=== PATIENT | male | born 1960 | race Caucasian/White ===

== ENCOUNTER 2018-08-14 11:46 | Inpatient (IN) | payer OTHER ==
[2018-08-14] MEDS ORDERED: ERTAPENEM SODIUM INJ 1 GM VIAL IV ONE (12:49)
[2018-08-14 12:51] LABS: HEMATOCRIT 37.9 % (37.9-51.0); MEAN CORPUSCULAR HEMOGLOBIN 35.7 pg (27.0-33.4); MEAN CORPUSCULAR HGB CONC 34.2 g/dL (32.0-36.0); MEAN CORPUSCULAR VOLUME 105 fl (80-97); PLATELET COUNT 222 10^3/uL (150-450); RED BLOOD COUNT 3.63 10^6/uL (4.35-5.55); RED CELL DISTRIBUTION WIDTH 14.2 % (11.5-14.0); WHITE BLOOD COUNT 17.1 10^3/uL (4.0-10.5)
--- NOTE | 2018-08-14 12:55 | ER Document Report ---
ED Extremity Problem, Lower - General Mode of Arrival: Ambulatory Information source: Patient TRAVEL OUTSIDE OF THE [place] IN LAST 30 DAYS: No <EDWARD RIVAS - Last Filed: 08/14/18 13:04> <LEONEL LUCIANO - Last Filed: 08/14/18 16:00> - General Chief Complaint: Foot Pain Stated Complaint: FOOT PROBLEM Time Seen by Provider: 08/14/18 12:35 Notes: 58-year-old male with type I diabetes that presents to the emergency department today with complaints of a right foot infection. Patient states that this infection began around August 09. Patient denies any fevers. (EDWARD RIVAS) - Related Data Allergies/Adverse Reactions: naproxen [From Aleve] Allergy (Verified 08/14/18 11:50) itching Past Medical History - General Information source: Patient - Social History Smoking Status: Current Every Day Smoker Cigarette use (# per day): Yes Chew tobacco use (# tins/day): No Frequency of alcohol use: Occasional Family History: Reviewed & Not Pertinent Patient has suicidal ideation: No Patient has homicidal ideation: No Endocrine Medical History: Reports: Hx Diabetes Mellitus Type 1 <EDWARD RIVAS - Last Filed: 08/14/18 13:04> Review of Systems - Review of Systems Constitutional: No symptoms reported. denies: Fever EENT: No symptoms reported Cardiovascular: No symptoms reported Respiratory: No symptoms reported Gastrointestinal: No symptoms reported Genitourinary: No symptoms reported Male Genitourinary: No symptoms reported Musculoskeletal: No symptoms reported Skin: See HPI, Change in color, Lesions Hematologic/Lymphatic: No symptoms reported Neurological/Psychological: No symptoms reported -: Yes All other systems reviewed and negative <EDWARD RIVAS - Last Filed: 08/14/18 13:04> Physical Exam <EDWARD RIVAS - Last Filed: 08/14/18 13:04> <LEONEL LUCIANO - Last Filed: 08/14/18 16:00> - Vital signs Vitals: Temp Pulse Resp BP Pulse Ox 98.4 F 123 H 18 151/78 H 100 08/14/18 11:52 08/14/18 11:52 08/14/18 11:52 08/14/18 11:52 08/14/18 11:52 - Notes Notes: Physical Exam: General: Alert, appears well. HEENT: Normocephalic. Atraumatic. PERRL. Extraocular movements intact. Oropharynx clear. Neck: Supple. Non-tender. Respiratory: No respiratory distress. Clear and equal breath sounds bilaterally. Cardiovascular: Regular rate and rhythm. Abdominal: Normal Inspection. Non-tender. No distension. Normal Bowel Sounds. Back: Non-tender. No deformity or step off. Extremities: Moves all four extremities. Upper extremities: Normal inspection. Normal ROM. Lower extremities: See skin exam Neurological: Normal cognition. AAOx4. Normal speech. Psychological: Normal affect. Normal Mood. Skin: Erythema, swelling, with white discoloration over the medial and dorsal medial aspect of the right lower extremity. Over the plantar surface of the right first metacarpal head has 1.5cm x 3cm area of red dermis, no epidermis over this area. (EDWARD RIVAS) Course - Laboratory Result Diagrams: 08/14/18 12:37 08/14/18 12:37 <EDWARD RIVAS - Last Filed: 08/14/18 13:04> - Laboratory Result Diagrams: 08/14/18 12:37 08/14/18 12:37 - Diagnostic Test Radiology reviewed: Reports reviewed - Right foot shows soft tissue swelling with gas formation predominantly around the head of the first metatarsal - EKG Interpretation by [place] EKG shows normal: Sinus rhythm, [place], Intervals, ST-T Waves. abnormal: QRS Complexes - Abnormal R progression Rate: Tachycardia - 110 - Consults Dr. Morrison Time consulted: 14:15 Consulted provider: will come to ER Dr. Moe Time consulted: 14:00 Consulted provider: will see as inpatient - Have the hospitalist admit the patient and he will see him in the emergency room. <LEONEL LUCIANO - Last Filed: 08/14/18 16:00> - Vital Signs Vital signs: Temp Pulse Resp BP Pulse Ox 100.9 F H 115 H 20 136/77 H 100 08/14/18 14:46 08/14/18 14:46 08/14/18 14:46 08/14/18 14:46 08/14/18 11:52 - Laboratory Laboratory results interpreted by me: 08/14/18 08/14/18 08/14/18 12:37 12:37 13:50 WBC 17.1 H RBC 3.63 L Hgb 13.0 L MCV 105 H MCH 35.7 H RDW 14.2 H Seg Neuts % (Manual) 86 H Lymphocytes % (Manual) 7 L Abs Neuts (Manual) 14.7 H Sodium 135.8 L Chloride 97 L BUN 6 L Glucose 447 H* Total Bilirubin 3.8 H Direct Bilirubin 3.1 H AST 97 H Alkaline Phosphatase 298 H Albumin 3.4 L Urine Glucose (UA) >=500 H Urine Urobilinogen 4.0 H Urine Ascorbic Acid 20 H Critical Care Note - Critical Care Note Total time excluding time spent on procedures (mins): 35 <LEONEL LUCIANO - Last Filed: 08/14/18 16:00> Discharge <EDWARD RIVAS - Last Filed: 08/14/18 13:04> - Discharge Admitting Provider: Hospitalist Unit Admitted: IMCU <LEONEL LUCIANO - Last Filed: 08/14/18 16:00> - Discharge Clinical Impression: Gas gangrene of foot Diabetic foot ulcer Qualifiers: Diabetic foot ulcer location: unspecified part of foot Diabetes mellitus type: type 2 Laterality: right Non-pressure ulcer stage: with necrosis of muscle Qualified Code(s): E11.621 - Type 2 diabetes mellitus with foot ulcer Hyperglycemia due to type 2 diabetes mellitus Qualifiers: Diabetes mellitus middle or intermediate school principal insulin use: without fpc use Qualified Code(s ): E11.65 - Type 2 diabetes mellitus with hyperglycemia Leukocytosis Qualifiers: Leukocytosis type: unspecified Qualified Code(s): D72.829 - Elevated white blood cell count, unspecified Condition: Stable Disposition: ADMITTED INPATIENT Scribe Attestation: 08/14/18 14:19 I personally performed the services described in the documentation, reviewed and edited the documentation which was dictated to the scribe in my presence, and it accurately records my words and actions. (LEONEL LUCIANO) Scribe Documentation - Scribe Written by Bert:: Bert Hudson, 08/14/2018 1305 acting as scribe for :: Sarai <EDWARD RIVAS - Last Filed: 08/14/18 13:04>
[2018-08-14 13:10] LABS: ALANINE AMINOTRANSFERASE 39 U/L (21-72); ALBUMIN 3.4 g/dL (3.5-5.0); ALKALINE PHOSPHATASE 298 U/L (38-126); ANION GAP 14 (5-19); ASPARTATE AMINO TRANSFERASE 97 U/L (17-59); BILIRUBIN,DIRECT 3.1 mg/dL (0.0-0.4); BILIRUBIN,TOTAL 3.8 mg/dL (0.2-1.3); BLOOD UREA NITROGEN 6 mg/dL (7-20); CALCIUM 8.7 mg/dL (8.4-10.2); CARBON DIOXIDE 25 mmol/L (22-30); CHLORIDE 97 mmol/L (98-107); SODIUM 135.8 mmol/L (137-145); TOTAL PROTEIN 7.2 g/dL (6.3-8.2)
[2018-08-14 13:21] LABS: GLUCOSE 447 mg/dL (75-110)
[2018-08-14 13:26] LABS: ABSOLUTE LYMPHOCYTES# (MANUAL) 1.2 10^3/uL (0.5-4.7); ABSOLUTE NEUTROPHILS# (MANUAL) 14.7 10^3/uL (1.7-8.2); BASOPHILS % (MANUAL) 0 % (0-2); EOSINOPHILS % (MANUAL) 1 % (0-6); LYMPHOCYTES % (MANUAL) 7 % (13-45); MONOCYTES % (MANUAL) 6 % (3-13); SEGMENTED NEUTROPHILS % (MAN) 86 % (42-78); TOTAL CELLS COUNTED 100
[2018-08-14 13:27] LABS: ANISOCYTOSIS SLIGHT; PLATELET COMMENT ADEQUATE; POIKILOCYTOSIS SLIGHT; STOMATOCYTES SLIGHT; TOXIC GRANULATION 1+
--- NOTE | 2018-08-14 13:44 | RADIOLOGY REPORT (SQ) ---
EXAM DESCRIPTION: FOOT RIGHT COMPLETE COMPLETED DATE/TIME: 08/14/2018 1:30 pm REASON FOR STUDY: Diabetic foot ulcers COMPARISON: None. NUMBER OF VIEWS: Three views. TECHNIQUE: AP, lateral and oblique radiographic images acquired of the right foot. LIMITATIONS: None. FINDINGS: MINERALIZATION: Normal. BONES: No acute fracture or dislocation. No worrisome bone lesions. JOINTS: No effusions. SOFT TISSUES: There is subcutaneous gas lucency about the medial and lateral aspects of the right 1st metatarsophalangeal joint, the ball of the right great toe, and about the dorsum of the right foot. OTHER: No other significant finding. IMPRESSION: 1. There is subcutaneous gas lucency about the medial and lateral aspects of the right 1 st metatarsophalangeal joint, the ball of the right great toe, and about the dorsum of the right foot . Findings are highly concerning for gas-forming infection such as necrotizing fascitis, which is im minently threatening to life and limb. 2. No evidence of osseous erosion or sclerosis suggestive of osteomyelitis. MRI may be used to more sensitively evaluate for marrow edema and osteomyelitis when clinically appropriate. TECHNICAL DOCUMENTATION: JOB ID: [id number] [employer]- All Rights Reserved Reading location - IP/workstation name: [email or web address]
[2018-08-14] MEDS ORDERED: NORMAL SALINE 1000 ML 1,000 ML IV ONE (14:08)
[2018-08-14] MEDS ORDERED: INSULIN REG, HUMAN 100 UNIT/ML 3 ML VIAL (PYX) IV ONE (14:12)
[2018-08-14 14:24] LABS: APPEARANCE,URINE CLEAR; BILIRUBIN,URINE NEGATIVE (NEGATIVE); GLUCOSE, URINE >=500 mg/dL (NEGATIVE); KETONES,URINE NEGATIVE (NEGATIVE); LEUKOCYTE ESTERASE,URINE NEGATIVE (NEGATIVE); NITRITE,URINE NEGATIVE (NEGATIVE); PROTEIN,URINE NEGATIVE (NEGATIVE); URINE SPECIFIC GRAVITY 1.022
[2018-08-14 14:33] LABS: COLOR,URINE YELLOW
[2018-08-14] MEDS ORDERED: ACETAMINOPHEN 325 MG TABLET PO ONE (14:46)
[2018-08-14] MEDS ORDERED: DEXTROSE 40% GEL 15 GM TUBE PO PRN ×2 (15:11)
[2018-08-14] MEDS ORDERED: DEXTROSE 50%-WATER 25 GM/50 ML DISP.SYRIN IV PRN ×2 (15:11)
[2018-08-14] MEDS ORDERED: GLUCAGON,HUMAN RECOMB 1 MG INJ IM PRN (15:11)
[2018-08-14] MEDS ORDERED: INSULIN LISPRO 100 UNIT/ML 3 ML VIAL SUBCUT PRN (15:17)
[2018-08-14] MEDS ORDERED: VANCOMYCIN HCL 0 MG in DEXTROSE 5%-WATER 250 ML IV NR (15:45)
[2018-08-14] MEDS ORDERED: MIDAZOLAM 2 MG/2 ML INJ ONE (17:35)
[2018-08-14] MEDS ORDERED: FENTANYL CITRATE INJ/PF 100 MCG/2 ML AMPUL ONE (17:35)
[2018-08-14] MEDS ORDERED: LIDOCAINE 2% INJ-PF (20 MG/ML) 10 ML AMPUL ONE (17:35)
[2018-08-14] MEDS ORDERED: BUPIVACAINE HCL 0.5 % INJ/PF 30 ML SDV ONE (17:36)
[2018-08-14] MEDS ORDERED: PROPOFOL INJ 200 MG/20 ML VIAL IV ONE (17:36)
--- NOTE | 2018-08-14 17:41 | PDOC H&P ---
History of Present Illness Admission Date/PCP: 08/14/18 14:22 SUSAN JONES MD Patient complains of: right foot pain, drainage, foul odor. History of Present Illness: MARILU IVEY is a 58 year old male with a one day h/o swelling, erythema, and pain to the right foot. The pt first noticed the symptoms this morning. He has not had anything like this happen before. He is a diabetic and has neuropathy. He has an eschar to the right plantar and medial surfaces. There is copius, fould smelling purulent drainage. He reports fevers, chills, drainage, and pain. He denies CP, SOB, N/V, melena, hematochezia, hematemesis, blurry vision. His pain is throbbing and severe. He is a smoker. Past Medical History Cardiac Medical History: Reports: Hypertension Endocrine Medical History: Reports: Diabetes Mellitus Type 1 Past Surgical History Past Surgical History: Reports: None Social History Smoking Status: Current Every Day Smoker Frequency of Alcohol Use: None Hx Recreational Drug Use: No Hx Prescription Drug Abuse: No - Advance Directive Resuscitation Status: Full Code Family History Family History: Reviewed & Not Pertinent Parental Family History Reviewed: Yes Children Family History Reviewed: Yes Sibling(s) Family History Reviewed.: Yes Medication/Allergy Home Medications: Lisinopril [Prinivil 10 mg Tablet] 10 mg PO DAILY 08/14/18 Metformin HCl [Glucophage 500 mg Tablet] 500 mg PO DAILY 08/14/18 Pregabalin [Lyrica 100 Mg Capsule] 100 mg PO BID 08/14/18 Allergies/Adverse Reactions: naproxen [From Aleve] Allergy (Verified 08/14/18 11:50) itching Review of Systems Constitutional: PRESENT: chills, fever(s) Eyes: ABSENT: visual disturbances Ears: ABSENT: hearing changes Nose, Mouth, and Throat: ABSENT: sore throat Cardiovascular: ABSENT: chest pain, palpitations Respiratory: ABSENT: cough, dyspnea Gastrointestinal: ABSENT: abdominal pain, hematemesis, hematochezia, nausea, vomiting Genitourinary: ABSENT: difficulty urinating Musculoskeletal: ABSENT: back pain Integumentary: PRESENT: lesions - right foot Neurological: PRESENT: numbness - diabetic neuropathy. ABSENT: confusion, convulsions, dizziness Psychiatric: ABSENT: anxiety, depression Endocrine: ABSENT: cold intolerance, heat intolerance Hematologic/Lymphatic: ABSENT: easy bleeding, easy bruising Physical Exam Vital Signs: Temp Pulse Resp BP Pulse Ox 100.9 F H 115 H 20 136/77 H 100 08/14/18 14:46 08/14/18 14:46 08/14/18 14:46 08/14/18 14:46 08/14/18 11:52 General appearance: PRESENT: no acute distress. ABSENT: obese Head exam: PRESENT: atraumatic, normocephalic Eye exam: PRESENT: EOMI, PERRLA. ABSENT: scleral icterus Mouth exam: ABSENT: neck supple Teeth exam: ABSENT: poor dentation Neck exam: ABSENT: meningismus, tenderness, thyromegaly, tracheal deviation Respiratory exam: PRESENT: clear to auscultation paula, unlabored. ABSENT: chest wall tenderness, tachypnea, wheezes Cardiovascular exam: PRESENT: RRR Pulses: PRESENT: normal radial pulses GI/Abdominal exam: PRESENT: soft. ABSENT: distended, firm, guarding, tenderness Rectal exam: PRESENT: deferred Extremities exam: PRESENT: other - right foot with necrotic ulcer to plantar and medial aspect. Purulent drainage. Erythema present throughout foot, up to ankle. Musculoskeletal exam: ABSENT: deformity Neurological exam: PRESENT: alert, awake, oriented to person, oriented to place , oriented to time, oriented to situation, CN II-XII grossly intact Psychiatric exam: ABSENT: agitated, anxious, depressed Focused psych exam: ABSENT: delusional Skin exam: ABSENT: cyanosis, erythema, jaundice Results Laboratory Results: 08/14/18 08/14/18 14:25 15:45 Lactic Acid 2.5 H 2.0 Impressions: Foot X-Ray 08/14/18 12:48 IMPRESSION: 1. There is subcutaneous gas lucency about the medial and lateral aspects of the right 1st metatarsophalangeal joint, the ball of the right great toe, and about the dorsum of the right foot. Findings are highly concerning for gas-forming infection such as necrotizing fascitis, which is imminently threatening to life and limb. 2. No evidence of osseous erosion or sclerosis suggestive of osteomyelitis. MRI may be used to more sensitively evaluate for marrow edema and osteomyelitis when clinically appropriate. Assessment & Plan - Diagnosis (1) Diabetic foot ulcer Qualifiers: Diabetic foot ulcer location: unspecified part of foot Diabetes mellitus type: type 2 Laterality: right Non-pressure ulcer stage: with necrosis of muscle Qualified Code(s): E11.621 - Type 2 diabetes mellitus with foot ulcer; L97.513 - Non-pressure chronic ulcer of other part of right foot with necrosis of muscle; L97.513 - Non-pressure chronic ulcer of other part of right foot with necrosis of muscle; L97.513 - Non-pressure chronic ulcer of other part of right foot with necrosis of muscle; L97.513 - Non-pressure chronic ulcer of other part of right foot with necrosis of muscle - Plan Summary Plan Summary: 58 y/o M with a severe diabetic foot infection. I have reviewed his X-rays. There is evidence of deep infection. The pt has areas of necrosis and purulent drainage. I have recomended operative debridement and likely amputation of his first and possibley second toes. The pt has agreed to this. Risks/benefits discussed, infomred consent obtained, and all questions answered.
[2018-08-14] MEDS ORDERED: VANCOMYCIN HCL INJ 1000 MG VIAL ONE (17:58)
--- NOTE | 2018-08-14 18:13 | PDOC H&P ---
History of Present Illness Admission Date/PCP: 08/14/18 14:22 SUSAN JONES MD Patient complains of: foot swelling and drainage History of Present Illness: MARILU IVEY is a 58 year old male with a PMH of hypertension, diabetes mellitus and chronic smoking who presented with right foot pain and drainage. Patient reports that he started having some pain, swelling and redness on the distal, medial aspect of the right foot. He says that the swelling continued progress and the erythema spread towards to midaspect of the right foot. He says that he developed a purulent, foul-smelling drainage on the area. He denies previous wounds on the feet although he appears to have small chronic healing superficial wounds on both legs. He denies fever or chills. In the ER, foot x-ray shows changes concerning for possible necrotizing fasciitis. Case was discussed by ER provider with surgicalist who asked to have patient admitted under hospitalist service. Past Medical History Endocrine Medical History: Reports: Diabetes Mellitus Type 1 Social History Smoking Status: Current Every Day Smoker Family History Family History: Reviewed & Not Pertinent Parental Family History Reviewed: Yes - no premature CAD Children Family History Reviewed: No Sibling(s) Family History Reviewed.: No Medication/Allergy Home Medications: Lisinopril [Prinivil 10 mg Tablet] 10 mg PO DAILY 08/14/18 Metformin HCl [Glucophage 500 mg Tablet] 500 mg PO DAILY 08/14/18 Pregabalin [Lyrica 100 Mg Capsule] 100 mg PO BID 08/14/18 Allergies/Adverse Reactions: naproxen [From Aleve] Allergy (Verified 08/14/18 11:50) itching Review of Systems All systems: reviewed and no additional remarkable complaints except as stated - as mentioned in HPI Physical Exam Vital Signs: Temp Pulse Resp BP Pulse Ox 100.9 F H 115 H 20 136/77 H 100 08/14/18 14:46 08/14/18 14:46 08/14/18 14:46 08/14/18 14:46 08/14/18 11:52 General appearance: PRESENT: no acute distress, well-developed, well-nourished Head exam: PRESENT: atraumatic, normocephalic Eye exam: PRESENT: conjunctiva pink, EOMI, PERRLA. ABSENT: scleral icterus Ear exam: PRESENT: normal external ear exam Neck exam: ABSENT: carotid bruit, JVD, lymphadenopathy, thyromegaly Respiratory exam: PRESENT: clear to auscultation paula. ABSENT: rales, rhonchi, wheezes Cardiovascular exam: PRESENT: RRR. ABSENT: diastolic murmur, rubs, systolic murmur GI/Abdominal exam: PRESENT: normal bowel sounds, soft. ABSENT: distended, guarding, mass, organolmegaly, rebound, tenderness Rectal exam: PRESENT: deferred Extremities exam: PRESENT: other - right foot is erythematous and grossly swollen particularly on the mid-distal aspect, there is a draining wound on the distal, medial apsec tof the right foot Neurological exam: PRESENT: alert, awake, oriented to person, oriented to place , oriented to time, oriented to situation, CN II-XII grossly intact. ABSENT: motor sensory deficit Results Laboratory Results: 08/14/18 14:25 Lactic Acid 2.5 H Impressions: Foot X-Ray 08/14/18 12:48 IMPRESSION: 1. There is subcutaneous gas lucency about the medial and lateral aspects of the right 1st metatarsophalangeal joint, the ball of the right great toe, and about the dorsum of the right foot. Findings are highly concerning for gas-forming infection such as necrotizing fascitis, which is imminently threatening to life and limb. 2. No evidence of osseous erosion or sclerosis suggestive of osteomyelitis. MRI may be used to more sensitively evaluate for marrow edema and osteomyelitis when clinically appropriate. Assessment & Plan - Diagnosis (1) Sepsis Is this a current diagnosis for this admission?: Yes Plan: Sepsis from possible necrotizing fasciitis. Patient is presenting with drainage on the right foot. He has tachycardia, fever and significant leukocytosis. He also has hyperbilirirubinemia. Lactic acid is also elevated after being given a liter of IV fluids in the ER. Case was discussed by ER provider with surgicalist who asked to have patient admitted under hospitalist service. Blood culture drawn. Patient was given Ertapenem in the ER. Will continue antibiotics with vancomycin and Zosyn. Continue IV fluids. (2) Gas gangrene of foot Is this a current diagnosis for this admission?: Yes Plan: As per number 1. Patient will be evaluated by surgery soon for surgical intervention. (3) Hyperglycemia due to type 2 diabetes mellitus Qualifiers: Diabetes mellitus correction insulin use: without terminal computer operator use Qualified Code(s): E11.65 - Type 2 diabetes mellitus with hyperglycemia Plan: Diabetes is controlled with A1c of 5.6. His hyperglycemia is likely related to his sepsis. - Time Time Spent: 30 to 50 Minutes
[2018-08-14] MEDS: BUPIVACAINE HCL 0.25% /EPINEPHRINE INJ/PF 30 ML SDV ONE (18:39)
[2018-08-14] MEDS ORDERED: OXYCODONE-ACETAMINOPHEN 5-325 MG TABLET PO PRN ×2 (18:49)
[2018-08-14] MEDS ORDERED: PROMETHAZINE HCL INJ 25 MG/1 ML VIAL IV PRN ×2 (18:49)
[2018-08-14] MEDS ORDERED: FENTANYL CITRATE INJ/PF 100 MCG/2 ML AMPUL IV PRN ×3 (18:49)
[2018-08-14] MEDS ORDERED: DIPHENHYDRAMINE HCL 50 MG/ML VIAL IV PRN (18:49)
[2018-08-14] MEDS ORDERED: ONDANSETRON HCL INJ/PF 4 MG/2 ML SDV IV PRN (18:49)
[2018-08-14] MEDS ORDERED: MEPERIDINE HCL/PF INJ 25 MG/1 ML DISP.SYRIN IV PRN (18:49)
[2018-08-14] MEDS: PIPERACILLIN SODIUM/TAZOBACTAM 3.375 GM in NORMAL SALINE 100 ML IV SCH ×2 (21:01→23:43)
[2018-08-14] MEDS: NORMAL SALINE 1000 ML 1,000 ML IV PRN (21:04)
--- NOTE | 2018-08-14 21:14 | Operative Report ---
Nonrecallable Operative Report DATE OF SURGERY: 08/14/18 PREOPERATIVE DIAGNOSIS: 1. Diabetic foot infection, right. 2. Necrotizing fasciitis of the right foot. POSTOPERATIVE DIAGNOSIS: 1. Diabetic foot infection, right. 2. Necrotizing fasciitis of the right foot. OPERATION: 1. Ray amputation of the right great toe. 2. Sharp, excisional debridement of skin, fat, muscle, and tendon for the right foot for necrotizing fasciitis. Total debrided area measures approximately 5 cm x 4 cm. SURGEON: JAYDA WEAVER ANESTHESIA: LMAC TISSUE REMOVED OR ALTERED: right great toe COMPLICATIONS: none apparent ESTIMATED BLOOD LOSS: 35cc PROCEDURE: Drains/implants: Quarter inch [place] drain through the foot. 4 x 4 packing soaked in Betadine. Procedure in detail: After informed consent was obtained, the patient was brought into the operating room and laid in the supine position. The area of the right foot was prepped and draped in a normal sterile fashion. The patient had a large, necrotic malperforans ulcer. Debridement of nonviable tissue was then undertaken. The soft tissue of the foot was necrotic all the way to the bone on the plantar surface overlying the metatarsal head. This necrotic tissue extended laterally and superiorly somewhat. It was obvious that the great toe would need to be removed in order to excise all of the necrotic tissue. The large area of necrotic soft tissue was excised sharply using a 10 blade scalpel. Dissection was carried to the metatarsal head. The metatarsal head was then divided using large bone cutters. There was a large amount of purulent material surrounding the metatarsal head. The purulent fluid extended more proximally into the foot, on the dorsal and plantar aspects of the foot. Because of this, counterincisions were made on the dorsal and plantar surface of the foot to drain all of the purulent material adequately. Aggressive irrigation was then undertaken. A 1/4 inch [place] drain was passed through the counterincisions. Hemostasis was achieved using Bovie electrocautery. The wound was then packed with Betadine soaked 4 x 4's. A dressing was placed, and the procedure was concluded. All sponge, instrument, and needle counts were correct x2. Condition: Fair.
[2018-08-14] MEDS: HEPARIN SOD (PORCINE) 5,000 UNIT/ML 1 ML SYRINGE SUBCUT SCH (21:54)
[2018-08-14] MEDS: VANCOMYCIN HCL 1,000 MG in DEXTROSE 5%-WATER 250 ML IV SCH (21:54)
[2018-08-14] MEDS ORDERED: HYDROCODONE/ACETAMINOPHEN 10-325 MG TABLET PO PRN (22:39)
[2018-08-14] MEDS ORDERED: MORPHINE SULFATE 10 MG/ML INJ IV PRN (22:39)
[2018-08-15] MEDS: PIPERACILLIN SODIUM/TAZOBACTAM 3.375 GM in NORMAL SALINE 100 ML IV SCH ×3 (05:24→18:40)
[2018-08-15] MEDS: VANCOMYCIN HCL 1,000 MG in DEXTROSE 5%-WATER 250 ML IV SCH ×3 (05:56→22:35)
[2018-08-15 06:05] LABS: ABSOLUTE BASOPHILS # (AUTO) 0.1 10^3/uL (0.0-0.2); ABSOLUTE EOSINOPHILS # (AUTO) 0.1 10^3/uL (0.0-0.6); ABSOLUTE LYMPHOCYTES (AUTO) 1.3 10^3/uL (0.5-4.7); ABSOLUTE MONOCYTES (AUTO) 1.6 10^3/uL (0.1-1.4); BASOPHILS % (AUTO) 0.8 % (0-2); EOSINOPHILS % (AUTO) 0.5 % (0-6); HEMATOCRIT 32.1 % (37.9-51.0); HEMOGLOBIN 11.2 g/dL (13.5-17.0); LYMPHOCYTES % (AUTO) 8.7 % (13-45); MEAN CORPUSCULAR HEMOGLOBIN 35.8 pg (27.0-33.4); MEAN CORPUSCULAR HGB CONC 34.8 g/dL (32.0-36.0); MEAN CORPUSCULAR VOLUME 103 fl (80-97); MONOCYTES % (AUTO) 10.3 % (3-13); PLATELET COUNT 182 10^3/uL (150-450); RED BLOOD COUNT 3.12 10^6/uL (4.35-5.55); RED CELL DISTRIBUTION WIDTH 13.7 % (11.5-14.0); SEGMENTED NEUTROPHILS % (AUTO) 79.7 % (42-78); TOTAL CELLS COUNTED % (AUTO) 100 %
[2018-08-15 06:27] LABS: ANION GAP 9 (5-19); BLOOD UREA NITROGEN 6 mg/dL (7-20); CALCIUM 7.9 mg/dL (8.4-10.2); CARBON DIOXIDE 25 mmol/L (22-30); CHLORIDE 103 mmol/L (98-107); GLUCOSE 163 mg/dL (75-110); POTASSIUM 3.9 mmol/L (3.6-5.0); SODIUM 136.6 mmol/L (137-145)
[2018-08-15 09:23] LABS: ALANINE AMINOTRANSFERASE 42 U/L (21-72); ALBUMIN 2.2 g/dL (3.5-5.0); ALKALINE PHOSPHATASE 246 U/L (38-126); ASPARTATE AMINO TRANSFERASE 72 U/L (17-59); BILIRUBIN,DIRECT 2.6 mg/dL (0.0-0.4); BILIRUBIN,TOTAL 3.3 mg/dL (0.2-1.3); TOTAL PROTEIN 5.1 g/dL (6.3-8.2)
--- NOTE | 2018-08-15 09:37 | EKG REPORT ---
SEVERITY:- ABNORMAL ECG - SINUS TACHYCARDIA ABNRM R PROG, CONSIDER ASMI OR LEAD PLACEMENT : Confirmed by: Hilda Dorado MD 15-Aug-2018 09:36:43
[2018-08-15] MEDS: NORMAL SALINE 1000 ML 1,000 ML IV PRN ×3 (10:46→22:36)
[2018-08-15] MEDS: HEPARIN SOD (PORCINE) 5,000 UNIT/ML 1 ML SYRINGE SUBCUT SCH ×2 (10:47→22:33)
[2018-08-15] MEDS ORDERED: SUCCINYLCHOLINE CHLORIDE INJ 200 MG/10 ML VIAL ONE (11:02)
--- NOTE | 2018-08-15 12:44 | PDOC PROGRESS REPORT ---
Subjective Progress Note for:: 08/15/18 Subjective:: Feels well. No complaints. Reason For Visit: SEPSIS,POSSIBLE NECROTIZING FASCIITIS Physical Exam Vital Signs: Temp Pulse Resp BP Pulse Ox 98.5 F 77 22 H 152/81 H 97 08/15/18 08:13 08/15/18 08:13 08/15/18 08:13 08/15/18 08:13 08/15/18 08:13 Intake & Output 08/14/18 08/15/18 08/16/18 06:59 06:59 06:59 Intake Total 2550 1250 Output Total 30 Balance 2520 1250 Weight 76.1 kg Extremities exam: PRESENT: other - Right foot with fairly clean appearing great toe amputation wound with no purulent drainage at this region however patient has a counterincision at the dorsum of his midfoot with drainage of seropurulent fluid with erythema tracking cephalad and laterally up the foot with no overlying skin necrosis nor blistering. Results Laboratory Results: 08/15/18 05:33 08/15/18 05:33 08/14/18 08/14/18 08/15/18 14:25 15:45 05:33 WBC 15.0 H RBC 3.12 L Hgb 11.2 L Hct 32.1 L MCV 103 H MCH 35.8 H MCHC 34.8 RDW 13.7 Plt Count 182 Seg Neutrophils % 79.7 H Lymphocytes % 8.7 L Monocytes % 10.3 Eosinophils % 0.5 Basophils % 0.8 Absolute Neutrophils 12.0 H Absolute Lymphocytes 1.3 Absolute Monocytes 1.6 H Absolute Eosinophils 0.1 Absolute Basophils 0.1 Sodium Potassium Chloride Carbon Dioxide Anion Gap BUN Creatinine Est GFR ( Amer) Est GFR (Non-Af Amer) Glucose Lactic Acid 2.5 H 2.0 Calcium Total Bilirubin AST ALT Alkaline Phosphatase Total Protein Albumin 08/15/18 08/15/18 05:33 05:33 WBC RBC Hgb Hct MCV MCH MCHC RDW Plt Count Seg Neutrophils % Lymphocytes % Monocytes % Eosinophils % Basophils % Absolute Neutrophils Absolute Lymphocytes Absolute Monocytes Absolute Eosinophils Absolute Basophils Sodium 136.6 L Potassium 3.9 Chloride 103 Carbon Dioxide 25 Anion Gap 9 BUN 6 L Creatinine 0.44 L Est GFR ( Amer) > 60 Est GFR (Non-Af Amer) > 60 Glucose 163 H Lactic Acid Calcium 7.9 L Total Bilirubin 3.3 H AST 72 H ALT 42 Alkaline Phosphatase 246 H Total Protein 5.1 L Albumin 2.2 L Impressions: Foot X-Ray 08/14/18 12:48 IMPRESSION: 1. There is subcutaneous gas lucency about the medial and lateral aspects of the right 1st metatarsophalangeal joint, the ball of the right great toe, and about the dorsum of the right foot. Findings are highly concerning for gas-forming infection such as necrotizing fascitis, which is imminently threatening to life and limb. 2. No evidence of osseous erosion or sclerosis suggestive of osteomyelitis. MRI may be used to more sensitively evaluate for marrow edema and osteomyelitis when clinically appropriate. Assessment & Plan - Diagnosis (1) Diabetic infection of right foot Is this a current diagnosis for this admission?: Yes Plan: Status post debridement last night in the great toe amputation site looks okay but there is purulent drainage higher at the mid foot extending proximally and I feel that further debridement and drainage is needed today. As per the patient the erythema and the swelling has markedly improved from admission. And although it is apparent that he has had clinical improvement, with the seropurulent drainage that I am seeing further debridement is indicated. I have discussed with the patient the risk and benefits of the procedure including risk of additional surgery, adjacent structure injury, bleeding, infection, possible eventual need for an amputation. Patient understands and agrees to proceed.
--- NOTE | 2018-08-15 13:16 | RADIOLOGY REPORT (SQ) ---
EXAM DESCRIPTION: U/S ABDOMEN COMPLETE W/O DOP COMPLETED DATE/TIME: 08/15/2018 12:45 pm REASON FOR STUDY: elevated bili, liver enzymes COMPARISON: None. TECHNIQUE: Dynamic and static grayscale images acquired of the abdomen and recorded on PACS. Abiel wilkins selected color Doppler and spectral images recorded. LIMITATIONS: None. FINDINGS: PANCREAS: No masses. Visualized pancreatic duct normal caliber. LIVER: No masses. Increased echogenicity. There is a minimal amount of perihepatic fluid. LIVER VASCULATURE: Normal directional flow of the main portal vein and hepatic veins. GALLBLADDER: Contracted. No stones. No pericholecystic fluid. ULTRASOUND-DETECTED XIE'S SIGN: Negative. INTRAHEPATIC DUCTS AND COMMON DUCT: Common bile duct is borderline at 6.3 mm. INFERIOR VENA CAVA: Patent. AORTA: No aneurysm. The distal aorta was not seen. RIGHT KIDNEY: Normal size, 11.6 cm. Normal echogenicity. No solid or suspicious masses. No hyd ronephrosis. No calcifications. LEFT KIDNEY: Normal size, 10.8 cm. Normal echogenicity. No solid or suspicious masses. No hydr onephrosis. No calcifications. SPLEEN: Prominent at 13 cm. No solid masses. PERITONEAL AND PLEURAL SPACES: No ascites or effusions. OTHER: No other significant finding. IMPRESSION: Fatty infiltration of the liver. The spleen is prominent. No gallstones are present. Common bile duct is borderline. TECHNICAL DOCUMENTATION: JOB ID: [id number] [employer]- All Rights Reserved Reading location - IP/workstation name: [email or web address]
--- NOTE | 2018-08-15 14:22 | PDOC PROGRESS REPORT ---
Subjective Progress Note for:: 08/15/18 Subjective:: Mr. Pantoja is a 58 year old male with a PMH of hypertension, diabetes mellitus and chronic smoking who presented with right foot pain and drainage who was admitted for right foot necrotizing fasciitis. Patient went to OR last night and underwent Ray amputation of the right great toe and excisional debridement of skin, fat, muscle, and tendon for the right foot for necrotizing fasciitis. No acute event overnight. No recurrence of fever or chills. This morning, wound was re-evaluated by surgicalist and upon milking, purulent drainage was still appreciated. Surgery is planning to do a repeat debridement later today. Reason For Visit: SEPSIS,POSSIBLE NECROTIZING FASCIITIS Physical Exam Vital Signs: Temp Pulse Resp BP Pulse Ox 98.3 F 65 18 147/71 H 100 08/15/18 11:52 08/15/18 11:52 08/15/18 11:52 08/15/18 11:52 08/15/18 11:52 Intake & Output 08/14/18 08/15/18 08/16/18 06:59 06:59 06:59 Intake Total 2550 1790 Output Total 30 Balance 2520 1790 Weight 167 lb 12.348 oz General appearance: PRESENT: no acute distress, well-developed, well-nourished Head exam: PRESENT: atraumatic, normocephalic Eye exam: PRESENT: conjunctiva pink, EOMI, PERRLA. ABSENT: scleral icterus Ear exam: PRESENT: normal external ear exam Mouth exam: PRESENT: moist, tongue midline Neck exam: ABSENT: carotid bruit, JVD, lymphadenopathy, thyromegaly Respiratory exam: PRESENT: clear to auscultation paula. ABSENT: rales, rhonchi, wheezes Cardiovascular exam: PRESENT: RRR. ABSENT: diastolic murmur, rubs, systolic murmur Pulses: PRESENT: normal dorsalis pedis pul GI/Abdominal exam: PRESENT: normal bowel sounds, soft. ABSENT: distended, guarding, mass, organolmegaly, rebound, tenderness Rectal exam: PRESENT: deferred Extremities exam: PRESENT: other - right foot: S/P incisional debridement, erythema has slightly improved but upon milking, purulent drainage was still appreciated from the proximal part of the wound Neurological exam: PRESENT: alert, awake, oriented to person, oriented to place , oriented to time, oriented to situation, CN II-XII grossly intact. ABSENT: motor sensory deficit Results Laboratory Results: 08/15/18 05:33 08/15/18 05:33 08/14/18 08/14/18 08/15/18 14:25 15:45 05:33 WBC 15.0 H RBC 3.12 L Hgb 11.2 L Hct 32.1 L MCV 103 H MCH 35.8 H MCHC 34.8 RDW 13.7 Plt Count 182 Seg Neutrophils % 79.7 H Lymphocytes % 8.7 L Monocytes % 10.3 Eosinophils % 0.5 Basophils % 0.8 Absolute Neutrophils 12.0 H Absolute Lymphocytes 1.3 Absolute Monocytes 1.6 H Absolute Eosinophils 0.1 Absolute Basophils 0.1 Sodium Potassium Chloride Carbon Dioxide Anion Gap BUN Creatinine Est GFR ( Amer) Est GFR (Non-Af Amer) Glucose Lactic Acid 2.5 H 2.0 Calcium Total Bilirubin AST ALT Alkaline Phosphatase Total Protein Albumin 08/15/18 08/15/18 08/15/18 05:33 05:33 11:09 WBC RBC Hgb Hct MCV MCH MCHC RDW Plt Count Seg Neutrophils % Lymphocytes % Monocytes % Eosinophils % Basophils % Absolute Neutrophils Absolute Lymphocytes Absolute Monocytes Absolute Eosinophils Absolute Basophils Sodium 136.6 L Potassium 3.9 Chloride 103 Carbon Dioxide 25 Anion Gap 9 BUN 6 L Creatinine 0.44 L Est GFR ( Amer) > 60 Est GFR (Non-Af Amer) > 60 Glucose 163 H Lactic Acid 1.0 Calcium 7.9 L Total Bilirubin 3.3 H AST 72 H ALT 42 Alkaline Phosphatase 246 H Total Protein 5.1 L Albumin 2.2 L Impressions: Foot X-Ray 08/14/18 12:48 IMPRESSION: 1. There is subcutaneous gas lucency about the medial and lateral aspects of the right 1st metatarsophalangeal joint, the ball of the right great toe, and about the dorsum of the right foot. Findings are highly concerning for gas-forming infection such as necrotizing fascitis, which is imminently threatening to life and limb. 2. No evidence of osseous erosion or sclerosis suggestive of osteomyelitis. MRI may be used to more sensitively evaluate for marrow edema and osteomyelitis when clinically appropriate. Abdomen Ultrasound 08/15/18 10:19 IMPRESSION: Fatty infiltration of the liver. The spleen is prominent. No gallstones are present. Common bile duct is borderline. Assessment & Plan - Diagnosis (1) Sepsis Is this a current diagnosis for this admission?: Yes Plan: Sepsis from possible necrotizing fasciitis. Patient is presenting with drainage on the right foot. He has tachycardia, fever and significant leukocytosis. He also has hyperbilirirubinemia. Lactic acid is also elevated after being given a liter of IV fluids in the ER. Case was discussed by ER provider with surgicalist who asked to have patient admitted under hospitalist service. Blood culture drawn. Patient was given Ertapenem in the ER. Continue vancomycin and Zosyn. Continue IV fluids. (2) Gas gangrene of foot Is this a current diagnosis for this admission?: Yes Plan: S/P Ray amputation of the right great toe and excisional debridement of skin, fat, muscle, and tendon for the right foot for necrotizing fasciitis 08/14/18. He is scheduled for a repeat debridement this afternoon. (3) Hyperglycemia due to type 2 diabetes mellitus Qualifiers: Diabetes mellitus long term care pharmacist insulin use: without long term care pharmacist use Qualified Code(s): E11.65 - Type 2 diabetes mellitus with hyperglycemia Is this a current diagnosis for this admission?: Yes Plan: Improved. Diabetes is controlled with A1c of 5.6. His initial hyperglycemia is likely related to his sepsis. - Time Time Spent with patient: 15-24 minutes
[2018-08-15] MEDS ORDERED: KETAMINE HCL INJ 500 MG/10 ML VIAL ONE (16:25)
[2018-08-15] MEDS ORDERED: MIDAZOLAM 2 MG/2 ML INJ ONE (16:25)
[2018-08-15] MEDS ORDERED: FENTANYL CITRATE INJ/PF 100 MCG/2 ML AMPUL ONE (16:25)
[2018-08-15] MEDS ORDERED: PROPOFOL INJ 200 MG/20 ML VIAL IV ONE (16:26)
[2018-08-15] MEDS ORDERED: EPHEDRINE SULFATE INJ 50 MG/1 ML AMPULE ONE (16:26)
[2018-08-15] MEDS ORDERED: LIDOCAINE 2% INJ-PF (20 MG/ML) 10 ML AMPUL ONE (16:33)
[2018-08-15] MEDS ORDERED: BUPIVACAINE HCL 0.5 % INJ/PF 30 ML SDV ONE (16:39)
[2018-08-15] MEDS ORDERED: LIDOCAINE 1%/EPINEPHRINE INJ 20 ML VIAL ONE (16:39)
[2018-08-15] MEDS: BUPIVACAINE HCL 0.25% /EPINEPHRINE INJ/PF 30 ML SDV ONE (17:14)
[2018-08-15] MEDS ORDERED: DIPHENHYDRAMINE HCL 50 MG/ML VIAL IV PRN (17:19)
[2018-08-15] MEDS ORDERED: PROMETHAZINE HCL INJ 25 MG/1 ML VIAL IV PRN (17:19)
[2018-08-15] MEDS ORDERED: FENTANYL CITRATE INJ/PF 100 MCG/2 ML AMPUL IV PRN ×3 (17:19)
--- NOTE | 2018-08-15 17:51 | Operative Report ---
Operative Report DATE OF SURGERY: 08/15/18 PREOPERATIVE DIAGNOSIS: Diabetic foot infection, right. POSTOPERATIVE DIAGNOSIS: Diabetic foot infection, right. OPERATION: Sharp excisional debridement of right foot necrotic skin and fat and fascia. SURGEON: BILLIE WEISS ANESTHESIA: GA TISSUE REMOVED OR ALTERED: Turbid fluid submitted for culture and Gram stain COMPLICATIONS: None ESTIMATED BLOOD LOSS: Minimal INTRAOPERATIVE FINDINGS: Necrotic tissue at the edges of great toe amputation wound edges. Pocket of seropurulent fluid tracking cephalad with necrotic fascia. PROCEDURE: Informed consent was obtained. Patient was brought to the operating room and placed on the operating table in supine position. Patient's right foot was prepped and draped in usual sterile fashion. The procedure was done under general anesthesia. Patient had a great toe amputation with resection of the metatarsal head with open wound at this site. There was about 2-4 mm x 5 cm region of scattered necrotic tissue at the wound edges and at the deeper soft tissue. The necrotic tissue was excised using scissors and scalpel to viable tissue. A Nicolas drain was pre-existing between this wound and a counterincision on the dorsum of his foot. From this counterincision there was a track extending cephalad and slightly laterally with a seropurulent discharge. This tract was digitally explored and I made a counterincision higher and more lateral to adequately drain this tract the overlying skin appeared viable. Plains drain was used to connect the 2 counterincisions. There was necrotic fascia at this tract that was debrided away. And digitally probing all of this area there were no there tracks. The remaining fascia at the base appeared viable and I did not see any pus coming from the deeper tissues at this point. The wound was then copiously irrigated. Hemostasis was achieved with electrocautery. The wound was then packed with gauze. Of note the local anesthetic without epi was administered at the beginning of the case. Patient tolerated procedure well with no apparent complications and was taken to the recovery area in stable condition.
[2018-08-16] MEDS: PIPERACILLIN SODIUM/TAZOBACTAM 3.375 GM in NORMAL SALINE 100 ML IV SCH ×3 (01:17→11:20)
[2018-08-16] MEDS: VANCOMYCIN HCL 1,000 MG in DEXTROSE 5%-WATER 250 ML IV SCH (08:10)
[2018-08-16 08:21] VITALS: BP 131/83
--- NOTE | 2018-08-16 09:49 | PDOC PROGRESS REPORT ---
Subjective Progress Note for:: 08/16/18 Subjective:: Patient wants to leave the hospital to take care of his father's . Reason For Visit: SEPSIS,POSSIBLE NECROTIZING FASCIITIS Physical Exam Vital Signs: Temp Pulse Resp BP Pulse Ox 98.3 F 83 16 131/83 H 100 08/16/18 07:59 08/16/18 07:59 08/16/18 07:59 08/16/18 07:59 08/16/18 07:59 Intake & Output 08/15/18 08/16/18 08/17/18 06:59 06:59 06:59 Intake Total 2550 5396 100 Output Total 30 2136 Balance 2520 3260 100 Weight 76.1 kg 74 kg General appearance: PRESENT: no acute distress, cooperative Respiratory exam: PRESENT: clear to auscultation paula Cardiovascular exam: PRESENT: RRR Extremities exam: PRESENT: other - Foot wound with minimal drainage. No necrotic tissue noted in the upper incisions. The wide proximal medial wound at the great toe amputation site clean with no drainage. However there is still diffuse erythema and induration of the right foot but no fluctuance. Results Laboratory Results: 08/15/18 05:33 08/15/18 21:40 08/15/18 08/15/18 11:09 21:40 Creatinine 0.92 Est GFR ( Amer) > 60 Est GFR (Non-Af Amer) > 60 Lactic Acid 1.0 Impressions: Foot X-Ray 08/14/18 12:48 IMPRESSION: 1. There is subcutaneous gas lucency about the medial and lateral aspects of the right 1st metatarsophalangeal joint, the ball of the right great toe, and about the dorsum of the right foot. Findings are highly concerning for gas-forming infection such as necrotizing fascitis, which is imminently threatening to life and limb. 2. No evidence of osseous erosion or sclerosis suggestive of osteomyelitis. MRI may be used to more sensitively evaluate for marrow edema and osteomyelitis when clinically appropriate. Abdomen Ultrasound 08/15/18 10:19 IMPRESSION: Fatty infiltration of the liver. The spleen is prominent. No gallstones are present. Common bile duct is borderline. Assessment & Plan - Diagnosis (1) Diabetic infection of right foot Is this a current diagnosis for this admission?: Yes Plan: Status post 2 separate debridements. Still has erythema and induration. Intraoperative cultures are pending. We will add clindamycin to the antibiotic regimen. I have informed the patient that if he leaves AGAINST MEDICAL ADVICE today, he will most likely become septic and possibly lose his life and probably will lose his foot. We will get social worker aide involved to see if we can get him some help at home to make the arrangements through his jain or other resources.
--- NOTE | 2018-08-16 09:54 | Progress Note ---
Provider Note Provider Note: Patient underwent another debridement yesterday but wants to leave AMA today. Re-evaluated wound again this morning with surgeon and he still has significant induration and erythema. Discussed in length that he needs be continued with IV antibiotics. Surgeon also emphasized that he may even need amputation if there is no significant improvement in the next few days. Patient verbalized he understands these risks but he needs to go [place] to [place] this morning. Unfortunately, patient's father apparently last night and he says he needs to be there soon for the arrangements and that only he can deal with it.
[2018-08-16] MEDS ORDERED: CLINDAMYCIN 600 MG/D5W RTU 600 MG/50 ML RTUPB IV SCH (10:30)
[2018-08-16 10:43] LABS: ABSOLUTE EOSINOPHILS # (AUTO) 0.1 10^3/uL (0.0-0.6); ABSOLUTE MONOCYTES (AUTO) 1.2 10^3/uL (0.1-1.4); ABSOLUTE NEUT (AUTO) 9.6 10^3/uL (1.7-8.2); BASOPHILS % (AUTO) 0.4 % (0-2); HEMATOCRIT 36.4 % (37.9-51.0); HEMOGLOBIN 12.5 g/dL (13.5-17.0); LYMPHOCYTES % (AUTO) 8.3 % (13-45); MEAN CORPUSCULAR HEMOGLOBIN 35.4 pg (27.0-33.4); MEAN CORPUSCULAR HGB CONC 34.4 g/dL (32.0-36.0); MEAN CORPUSCULAR VOLUME 103 fl (80-97); MONOCYTES % (AUTO) 9.8 % (3-13); PLATELET COUNT 277 10^3/uL (150-450); RED BLOOD COUNT 3.53 10^6/uL (4.35-5.55); RED CELL DISTRIBUTION WIDTH 13.6 % (11.5-14.0); SEGMENTED NEUTROPHILS % (AUTO) 80.5 % (42-78); TOTAL CELLS COUNTED % (AUTO) 100 %; WHITE BLOOD COUNT 11.9 10^3/uL (4.0-10.5)
[2018-08-16 10:52] LABS: ALANINE AMINOTRANSFERASE 37 U/L (21-72); ALBUMIN 2.7 g/dL (3.5-5.0); ALKALINE PHOSPHATASE 270 U/L (38-126); ANION GAP 10 (5-19); ASPARTATE AMINO TRANSFERASE 85 U/L (17-59); BILIRUBIN,DIRECT 3.7 mg/dL (0.0-0.4); BILIRUBIN,TOTAL 4.4 mg/dL (0.2-1.3); BLOOD UREA NITROGEN 12 mg/dL (7-20); CALCIUM 8.4 mg/dL (8.4-10.2); CARBON DIOXIDE 27 mmol/L (22-30); CHLORIDE 102 mmol/L (98-107); GLUCOSE 191 mg/dL (75-110); POTASSIUM 4.3 mmol/L (3.6-5.0); SODIUM 139.4 mmol/L (137-145); TOTAL PROTEIN 6.1 g/dL (6.3-8.2)
[2018-08-16] MEDS: HEPARIN SOD (PORCINE) 5,000 UNIT/ML 1 ML SYRINGE SUBCUT SCH (11:20)
[2018-08-17 04:36] LABS: HEPATITIS A AB IGM Negative (Negative); HEPATITIS B CORE AB IGM Negative (Negative); HEPATITS B SURFACE ANTIGEN Negative (Negative)
[2018-08-17 18:30] LABS: HEPATITIS C VIRUS ANTIBODY <0.1 s/co ratio (0.0-0.9)
--- NOTE | 2018-08-20 10:35 | PDOC DISCHARGE SUMMARY ---
General - Admit/Disc Date/PCP Admission Date/Primary Care Provider: 08/14/18 14:22 SUSAN JONES MD Discharge Date: 08/16/18 - Discharge Diagnosis (1) Sepsis Is this a current diagnosis for this admission?: Yes (2) Gas gangrene of foot Is this a current diagnosis for this admission?: Yes (3) Hyperglycemia due to type 2 diabetes mellitus Is this a current diagnosis for this admission?: Yes - Additional Information Resuscitation Status: Full Code Home Medications: Lisinopril [Prinivil 10 mg Tablet] 10 mg PO DAILY 08/14/18 Metformin HCl [Glucophage 500 mg Tablet] 500 mg PO DAILY 08/14/18 Pregabalin [Lyrica 100 Mg Capsule] 100 mg PO BID 08/14/18 History of Present Illness History of Present Illness: MARILU IVEY is a 58 year old male with a PMH of hypertension, diabetes mellitus and chronic smoking who presented with right foot pain and drainage. Patient reports that he started having some pain, swelling and redness on the distal, medial aspect of the right foot. He says that the swelling continued progress and the erythema spread towards to midaspect of the right foot. He says that he developed a purulent, foul-smelling drainage on the area. He denies previous wounds on the feet although he appears to have small chronic healing superficial wounds on both legs. He denies fever or chills. In the ER, foot x-ray shows changes concerning for possible necrotizing fasciitis. Case was discussed by ER provider with surgicalist who asked to have patient admitted under hospitalist service. Hospital Course Hospital Course: Mr. Ivey is a 58 year old male with a PMH of hypertension, diabetes mellitus and chronic smoking who presented with right foot pain and drainage who was admitted for right foot necrotizing fasciitis. He was treated for sepsis from necrotizing fasciitis. Patient is presenting with drainage on the right foot. He has tachycardia, fever and significant leukocytosis. He also has hyperbilirirubinemia. Lactic acid is also elevated after being given a liter of IV fluids in the ER. Patient went to OR and underwent Ray amputation of the right great toe and excisional debridement of skin, fat, muscle, and tendon for the right foot for necrotizing fasciitis on 07/14/18. Patient was given Ertapenem in the ER. Switched vancomycin and Zosyn. Patient insisted on leaving AMA on 08/16/18 due to the unexpected of his father in [place]. Physical Exam Vital Signs: Temp Pulse Resp BP Pulse Ox 98.3 F 83 16 131/83 H 100 08/16/18 07:59 08/16/18 07:59 08/16/18 07:59 08/16/18 07:59 08/16/18 07:59 General appearance: PRESENT: no acute distress, well-developed, well-nourished Head exam: PRESENT: atraumatic, normocephalic Eye exam: PRESENT: conjunctiva pink, EOMI, PERRLA. ABSENT: scleral icterus Ear exam: PRESENT: normal external ear exam Mouth exam: PRESENT: moist, tongue midline Neck exam: ABSENT: carotid bruit, JVD, lymphadenopathy, thyromegaly Respiratory exam: PRESENT: clear to auscultation paula. ABSENT: rales, rhonchi, wheezes Cardiovascular exam: PRESENT: RRR. ABSENT: diastolic murmur, rubs, systolic murmur Pulses: PRESENT: normal dorsalis pedis pul GI/Abdominal exam: PRESENT: normal bowel sounds, soft. ABSENT: distended, guarding, mass, organolmegaly, rebound, tenderness Rectal exam: PRESENT: deferred Musculoskeletal exam: PRESENT: other - right foot: S/P incisional debridement, erythema has slightly improved but upon milking, purulent drainage was still appreciated from the proximal part of the wound Neurological exam: PRESENT: alert, awake, oriented to person, oriented to place , oriented to time, oriented to situation, CN II-XII grossly intact. ABSENT: motor sensory deficit Results Laboratory Results: 08/16/18 10:15 08/16/18 10:15 08/14/18 16:10 Blood Blood Culture - Final NO GROWTH IN 5 DAYS 08/15/18 17:17 Foot - Right Gram Stain - Final 08/15/18 17:17 Foot - Right Wound Culture - Final Citrobacter Koseri Proteus Mirabilis Streptococcus Viridans Impressions: Foot X-Ray 08/14/18 12:48 IMPRESSION: 1. There is subcutaneous gas lucency about the medial and lateral aspects of the right 1st metatarsophalangeal joint, the ball of the right great toe, and about the dorsum of the right foot. Findings are highly concerning for gas-forming infection such as necrotizing fascitis, which is imminently threatening to life and limb. 2. No evidence of osseous erosion or sclerosis suggestive of osteomyelitis. MRI may be used to more sensitively evaluate for marrow edema and osteomyelitis when clinically appropriate. Abdomen Ultrasound 08/15/18 10:19 IMPRESSION: Fatty infiltration of the liver. The spleen is prominent. No gallstones are present. Common bile duct is borderline. Qualifiers - * PATIENT BEING DISCHARGED WITH ANY OF THE FOLLOWING DIAGNOSIS: No
== END 2018-08-16 11:05 | disposition left against medical advice (07) | DRG 853 ==
LOC: ER 11:46 → EH 14:22 → 3S 20:30
PROVIDERS: ADMIT Internal Medicine; ATTEND Internal Medicine
PROC: 0LBV0ZZ Excision of Right Foot Tendon, Open Approach (ICD-10-PCS; 2018-08-14)
PROC: 0Y6P0Z0 Detachment at Right 1st Toe, Complete, Open Approach (ICD-10-PCS; 2018-08-14)
PROC: 0JBQ0ZZ Excision of Right Foot Subcutaneous Tissue and Fascia, Open Approach (ICD-10-PCS; principal; 2018-08-15 17:00)
DX: A41.9 Sepsis, unspecified organism (principal); A48.0 Gas gangrene; M72.6 Necrotizing fasciitis; E11.52 Type 2 diabetes mellitus with diabetic peripheral angiopathy with gangrene; I10 Essential (primary) hypertension; F17.210 Nicotine dependence, cigarettes, uncomplicated; B96.89 Other specified bacterial agents as the cause of diseases classified elsewhere; B96.4 Proteus (mirabilis) (morganii) as the cause of diseases classified elsewhere; B95.4 Other streptococcus as the cause of diseases classified elsewhere; E11.40 Type 2 diabetes mellitus with diabetic neuropathy, unspecified; E11.65 Type 2 diabetes mellitus with hyperglycemia; E11.621 Type 2 diabetes mellitus with foot ulcer; L97.513 Non-pressure chronic ulcer of other part of right foot with necrosis of muscle; Z88.8 Allergy status to other drugs, medicaments and biological substances; Z79.899 Other long term (current) drug therapy
CPT/HCPCS: 01470; 36415; 76700; 80048; 80053; 80074; 80076; 80202; 81001; 82565; 82962; 83036; 83605; 85025; 87040; 87070; 87075; 87077; 87186; 87205; 88304; 88311; 93005; 93010; 96365; 99291; J0330; J1335; J1644; J1815; J2250; J2543; J2704; J3010; J3370; J3490; J7030; J7060

== ENCOUNTER → 2018-10-24 | Outpatient (CLI) | payer OTHER ==
--- NOTE | 2018-10-24 11:40 | RADIOLOGY REPORT (SQ) ---
EXAM DESCRIPTION: CHEST PA/LATERAL COMPLETED DATE/TIME: 10/24/2018 11:30 am REASON FOR STUDY: PNEUMOTHORAX COMPARISON: None. EXAM PARAMETERS: NUMBER OF VIEWS: two views TECHNIQUE: Digital Frontal and Lateral radiographic views of the chest acquired. RADIATION DOSE: NA LIMITATIONS: none FINDINGS: LUNGS AND PLEURA: Chronic appearing blunting right lateral costophrenic sulcus. Adjacent minimal bandlike right lung base scarring. Nipple shadow along the right projected over the anterior 5th rib. No acute infiltrates. No pleural effusion. No pneumothorax. MEDIASTINUM AND HILAR STRUCTURES: No masses or contour abnormalities. HEART AND VASCULAR STRUCTURES: Heart normal size. No evidence for failure. BONES: No acute findings. HARDWARE: None in the chest. OTHER: No other significant finding. IMPRESSION: Chronic blunting right lateral costophrenic sulcus with minimal scarring right lung base . TECHNICAL DOCUMENTATION: JOB ID: [id number] [employer]- All Rights Reserved Reading location - IP/workstation name: [email or web address]
[2018-10-24 11:49] LABS: ABSOLUTE BASOPHILS # (AUTO) 0.1 10^3/uL (0.0-0.2); ABSOLUTE EOSINOPHILS # (AUTO) 0.1 10^3/uL (0.0-0.6); ABSOLUTE LYMPHOCYTES (AUTO) 0.7 10^3/uL (0.5-4.7); ABSOLUTE MONOCYTES (AUTO) 0.8 10^3/uL (0.1-1.4); ABSOLUTE NEUT (AUTO) 5.1 10^3/uL (1.7-8.2); BASOPHILS % (AUTO) 0.8 % (0-2); EOSINOPHILS % (AUTO) 1.4 % (0-6); HEMATOCRIT 36.7 % (37.9-51.0); LYMPHOCYTES % (AUTO) 10.6 % (13-45); MEAN CORPUSCULAR HEMOGLOBIN 35.2 pg (27.0-33.4); MEAN CORPUSCULAR HGB CONC 35.5 g/dL (32.0-36.0); MEAN CORPUSCULAR VOLUME 99 fl (80-97); MONOCYTES % (AUTO) 11.3 % (3-13); RED BLOOD COUNT 3.71 10^6/uL (4.35-5.55); RED CELL DISTRIBUTION WIDTH 15.3 % (11.5-14.0); SEGMENTED NEUTROPHILS % (AUTO) 75.9 % (42-78); TOTAL CELLS COUNTED % (AUTO) 100 %; WHITE BLOOD COUNT 6.7 10^3/uL (4.0-10.5)
[2018-10-24 12:13] LABS: ALANINE AMINOTRANSFERASE 66 U/L (21-72); ALBUMIN 3.5 g/dL (3.5-5.0); ALKALINE PHOSPHATASE 249 U/L (38-126); ASPARTATE AMINO TRANSFERASE 125 U/L (17-59); BILIRUBIN,DIRECT 1.8 mg/dL (0.0-0.4); BILIRUBIN,TOTAL 2.5 mg/dL (0.2-1.3); BLOOD UREA NITROGEN 8 mg/dL (7-20); CALCIUM 8.5 mg/dL (8.4-10.2); GLUCOSE 187 mg/dL (75-110); POTASSIUM 3.4 mmol/L (3.6-5.0); TOTAL PROTEIN 6.5 g/dL (6.3-8.2)
[2018-10-24 12:16] LABS: CARBON DIOXIDE 20 mmol/L (22-30); CHLORIDE 98 mmol/L (98-107); SODIUM 137.9 mmol/L (137-145)
[2018-10-24 12:19] LABS: ANION GAP 20 (5-19)
[2018-10-24 12:28] LABS: ERYTHROCYTE SEDIMENTATION RATE 41 mm/hr (0-20)
--- NOTE | 2018-10-24 12:39 | RADIOLOGY REPORT (SQ) ---
EXAM DESCRIPTION: FOOT RIGHT COMPLETE COMPLETED DATE/TIME: 10/24/2018 11:30 am REASON FOR STUDY: NON-PRESSURE ULCER OF RIGHT FOOT L97.514 NON-PRS CHRONIC ULCER OTH PRT RIGHT FOOT W NECROSIS E11.621 TYPE 2 DIABETES MELLITUS WITH FOOT ULCER J93.9 PNEUMOTHORAX, UNSPECIFIED COMPARISON: None. NUMBER OF VIEWS: Three views. TECHNIQUE: AP, lateral and oblique radiographic images acquired of the right foot. LIMITATIONS: None. FINDINGS: MINERALIZATION: Normal. BONES: No evidence of osteomyelitis. There is a fracture of the lateral aspect of the base of the 2n d proximal phalanx. 1st phalanx is amputated from the mid metatarsal level. JOINTS: No effusions. SOFT TISSUES: No soft tissue swelling. No foreign body. OTHER: No other significant finding. IMPRESSION: Fracture of the base of the 2nd proximal phalanx. No evidence of osteomyelitis. TECHNICAL DOCUMENTATION: JOB ID: [id number] [employer]- All Rights Reserved Reading location - IP/workstation name: [email or web address]
[2018-10-24 12:42] LABS: C-REACTIVE PROTEIN 98.4 mg/L (<10.0)
[2018-10-24 12:51] LABS: PLATELET COUNT 40 10^3/uL (150-450)
== END ==
LOC: WC 10:42
PROVIDERS: ATTEND Nurse Practitioner
DX: E11.621 Type 2 diabetes mellitus with foot ulcer (principal); L97.514 Non-pressure chronic ulcer of other part of right foot with necrosis of bone; S92.511A Displaced fracture of proximal phalanx of right lesser toe(s), initial encounter for closed fracture; X58.XXXA Exposure to other specified factors, initial encounter; J93.9 Pneumothorax, unspecified
CPT/HCPCS: 36415; 71046; 80053; 83036; 85025; 85652; 86140

== ENCOUNTER → 2018-10-29 | Outpatient (CLI) | payer OTHER ==
--- NOTE | 2018-10-30 08:46 | XCELERA REPORT ---
[address] [address] Lower Extremity Venous Evaluation Procedure: A bilateral duplex scan of the lower extremity veins was performed. The evaluation included responses to compression and other maneuvers with patient in the supine and standing positions to assess venous insufficiency. Right Sided Venous Evaluation Deep venous system evaluatiion shows patent veins with no obstruction or significant reflux identified. Sapheno Femoral junction: no reflux. Femoral vein reflux: no reflux. Greater Saphenous vein, Proximal thigh: reflux: no reflux. Greater Saphenous vein, Distal thigh: reflux: no reflux. Greater Saphenous vein, Proximal below knee: reflux: no reflux. No significant Perforators identified. Left Sided Venous Evaluation Deep venous system evaluatiion shows patent veins with no obstruction or significant reflux identified. Sapheno Femoral junction: no reflux. Femoral vein reflux: no reflux. Greater Saphenous vein, Proximal thigh: reflux: no reflux. Greater Saphenous vein, Distal thigh: reflux: no reflux. Greater Saphenous vein, Proximal below knee: reflux: no reflux. No significant Perforators identified. Interpretation Summary No duplex evidence of DVT or obstruction in the bilateral lower extremities. No significant deep or superficial reflux noted. Name: MARILU IVEY Age: 58 yrs Gender: Male : 1960 Patient Status: Outpatient Patient Location: Study Date: 10/29/2018 01:40 PM Reason For Study: ULCER Ordering Physician: BJORN CALVILLO Performed By: Jackson Hamlin : BJORN CALVILLO > Denzel Hawk
--- NOTE | 2018-10-30 08:49 | XCELERA REPORT ---
[address] [address] Lower Extremity Arterial Evaluation Name: MARILU IVEY Age: 58 yrs Gender: Male : 1960 Patient Status: Outpatient Patient Location: Study Date: 10/29/2018 01:17 PM Procedure: A color flow and duplex scan of the lower extremity arteries was performed bilaterally with velocity and waveform anaylsis. Reason For Study: ULCER Ordering Physician: BJORN CALVILLO Performed By: Jackson Hamlin Measurements and Calculations Right Left TELEVISION REPORTER PSV 131.3 120.2 cm/sec Prox PFA PSV -95.8 -120.8cm/sec Prox SFA PSV 136.2 97.6 cm/sec Mid SFA PSV -126.3 -102.0cm/sec Dist SFA PSV -97.8 -76.0 cm/sec Prox Pop A PSV 107.5 79.9 cm/sec Dist PRAVIN PSV 97.7 86.0 cm/sec Dist LEGAL ADMINISTRATIVE ASSISTANT PSV -85.6 94.3 cm/sec Marcel Pedis PSV 59.8 cm/sec Right Side Arterial Evaluation Normal velocity and triphasic waveforms noted in the Common Femoral artery. Biphasic with slight broadening, normal velocities form Popliteal to the infrageniculate vessels . Ankle Brachial index not obtained due to bandaging. Left Side Arterial Evaluation Normal velocity and triphasic waveforms noted from the Common Femoral artery to the infrageniculate vessels . Ankle Brachial index not obtained due to inability to tolerate. Interpretation Summary Mild hemodynamically significant lesions in the right lower extremity only, on duplex imaging, at rest. No hemodynamically significant lesions in the left lower extremity only, on duplex imaging, at rest. : BJORN CALVILLO > Denzel Hawk
== END ==
LOC: SP 12:52
PROVIDERS: ATTEND Nurse Practitioner
DX: L97.514 Non-pressure chronic ulcer of other part of right foot with necrosis of bone (principal); L97.512 Non-pressure chronic ulcer of other part of right foot with fat layer exposed
CPT/HCPCS: 93925; 93970